=== PATIENT | male | born 1965 | race Caucasian/White ===

== ENCOUNTER 2016-06-29 12:20 | Observation (INO) | payer OTHER ==
[~2016-06-29] VITALS: Ht 182.9 cm; Wt 87.0 kg
[~2016-06-29 12:20] MED LIST: HYDR10TA16 PO; ZOCO40TA PO
[2016-06-29 12:23] VITALS: BP 139/96; PULSE 104; RESP 16; TEMP 98.7; O2SAT 97
--- NOTE | 2016-06-29 12:26 | PD ---
Physical Exam Time Seen by Provider: 12:24 Narrative 50 year old male presents to ED for evaluation of chest tightness on the left side radiating to his left shoulder and bicep. It has gone up to his neck. this has been going on for the last 3 days pretty steady. Associated with mild shortness of breath at times. No exacerbating or alleviating factors. He notices it mostly at rest. No recent illnesses, fevers, or chills. No medical history. No tobacco cigarettes or alcohol. Rates pain 5/10 at this time. Data Data Last Documented VS Vital Signs Date Time Temp Pulse Resp B/P Pulse Ox O2 Delivery O2 Flow Rate FiO2 06/29/16 12:23 98.7 104 16 139/96 97 Room Air Orders Electrocardiogram (06/29/16 12:26) Basic Metabolic Panel (Bmp) (06/29/16 12:26) Ckmb (Isoenzyme) Profile (06/29/16 12:26) Complete Blood Count With Diff (06/29/16 12:26) Magnesium (Mg) (06/29/16 12:26) Prothrombin Time / Inr (Pt) (06/29/16 12:26) Act Partial Throm Time (Ptt) (06/29/16 12:26) Troponin I (06/29/16 12:26) Lipase (06/29/16 12:26) Chest, Single Ap (06/29/16 12:26) CKMB (06/29/16 12:45) CKMB% (06/29/16 12:45) Admit Order (Ed Use Only) (06/29/16 14:53) Labs Laboratory Tests Test 06/29/16 12:45 White Blood Count 10.4 TH/MM3 Red Blood Count 5.15 MIL/MM3 Hemoglobin 15.7 GM/DL Hematocrit 46.5 % Mean Corpuscular Volume 90.2 FL Mean Corpuscular Hemoglobin 30.4 PG Mean Corpuscular Hemoglobin 33.7 % Concent Red Cell Distribution Width 13.5 % Platelet Count 288 TH/MM3 Mean Platelet Volume 9.1 FL Neutrophils (%) (Auto) 66.7 % Lymphocytes (%) (Auto) 22.4 % Monocytes (%) (Auto) 9.3 % Eosinophils (%) (Auto) 1.1 % Basophils (%) (Auto) 0.5 % Neutrophils # (Auto) 6.9 TH/MM3 Lymphocytes # (Auto) 2.3 TH/MM3 Monocytes # (Auto) 1.0 TH/MM3 Eosinophils # (Auto) 0.1 TH/MM3 Basophils # (Auto) 0.1 TH/MM3 CBC Comment DIFF FINAL Differential Comment Prothrombin Time 10.7 SEC Prothromb Time International 1.0 RATIO Ratio Activated Partial 27.8 SEC Thromboplast Time Sodium Level 140 MEQ/L Potassium Level 3.9 MEQ/L Chloride Level 105 MEQ/L Carbon Dioxide Level 27.2 MEQ/L Anion Gap 8 MEQ/L Blood Urea Nitrogen 9 MG/DL Creatinine 0.93 MG/DL Estimat Glomerular Filtration 86 ML/MIN Rate Random Glucose 134 MG/DL Calcium Level 9.0 MG/DL Magnesium Level 2.6 MG/DL Total Creatine Kinase 137 U/L Creatine Kinase MB 0.8 NG/ML Troponin I LESS THAN 0.02 NG/ML Lipase 157 U/L MDM Medical Record Reviewed: Yes Supervised Visit with JOSELIN: No Narrative Course PT appears without distress. Work up initiated in triage. Scripts No Active Prescriptions or Reported Meds Condition: Stable Quita Choi Jun 29, 2016 12:26
[2016-06-29 13:37] LABS: AUTOMATED NEUTROPHIL # 6.9 TH/MM3 (1.8-7.7); BASOPHIL # 0.1 TH/MM3 (0-0.2); BASOPHIL % 0.5 % (0.0-2.0); EOSINOPHIL # 0.1 TH/MM3 (0-0.4); EOSINOPHIL % 1.1 % (0.0-4.0); HEMATOCRIT 46.5 % (39.0-51.0); HEMO FLAGS DIFF FINAL; LYMPH % 22.4 % (9.0-44.0); LYMPHOCYTE # 2.3 TH/MM3 (1.0-4.8); MEAN CELL VOLUME 90.2 FL (80.0-100.0); MEAN CORPUSCULAR HEMOGLOBIN 30.4 PG (27.0-34.0); MEAN CORPUSCULAR HGB CONC 33.7 % (32.0-36.0); MONO % 9.3 % (0.0-8.0); NEUT % 66.7 % (16.0-70.0); PLATELET COUNT 288 TH/MM3 (150-450); RED BLOOD COUNT 5.15 MIL/MM3 (4.50-5.90); RED CELL DISTRIBUTION WIDTH 13.5 % (11.6-17.2); WHITE BLOOD COUNT 10.4 TH/MM3 (4.0-11.0)
--- NOTE | 2016-06-29 13:44 | RADRPT ---
EXAM DATE/TIME: 06/29/2016 12:50 [facility] COMPARISON: No previous studies available for comparison. INDICATIONS : Chest pain. MEDICAL HISTORY : None. SURGICAL HISTORY : None. ENCOUNTER: Initial ACUITY: 4 - 6 days PAIN SCORE: 4/10 LOCATION: Left chest FINDINGS: A single view of the chest demonstrates the lungs to be symmetrically aerated without evidence of mas s, infiltrate or effusion. The cardiomediastinal contours are unremarkable. Osseous structures are intact. CONCLUSION: No acute disease. Gianni Molina MD FACR on June 29, 2016 at 13:42 Board Certified Radiologist. This report was verified electronically.
[2016-06-29 13:46] LABS: APTT (PATIENT) 27.8 SEC (24.3-30.1); PROTHROMBIN TIME - PATIENT 10.7 SEC (9.8-11.6)
[2016-06-29 14:05] LABS: ANION GAP 8 MEQ/L (5-15); BICARBONATE 27.2 MEQ/L (21.0-32.0); BLOOD UREA NITROGEN 9 MG/DL (7-18); CHLORIDE 105 MEQ/L (98-107); GLOMERULAR FILTRATION RATE 86 ML/MIN (>89); MAGNESIUM 2.6 MG/DL (1.5-2.5); POTASSIUM 3.9 MEQ/L (3.5-5.1); SODIUM (NA) 140 MEQ/L (136-145)
[2016-06-29 14:08] LABS: CREATINE KINASE 137 U/L (39-308)
[2016-06-29 14:20] LABS: CKMB 0.8 NG/ML (0.5-3.6)
[2016-06-29 15:04] VITALS: BP 140/84; PULSE 91; RESP 16; O2SAT 97
--- NOTE | 2016-06-29 15:11 | PD ---
HPI Chief Complaint: Chest Pain Time Seen by Provider: 14:45 Travel History International Travel<30 days: No Contact w/Intl Traveler<30days: No History of Present Illness HPI 50 year-old male with history of GERD presents to the emergency room for evaluation of left-sided chest pain radiating to the left shoulder with occasional associated shortness of breath for the past 3 days. Pain feels like pressure. Patient thought it was just his typical indigestion but it has not been going away with Pepcid or omeprazole. Denies diaphoresis, nausea, and vomiting. States he went to his primary care physician is him straight to the emergency room to be evaluated by the pastry artist. States he ran 3 miles with his children since onset of pressure and had no symptoms at that time. Patient denies any cardiac or lung history. Denies any family cardiac history. Last stress test was greater than 10 years ago and normal. PFSH Past Medical History Medical History: Denies Significant Hx Arthritis: No Cardiovascular Problems: No Cerebrovascular Accident: No Gastrointestinal Disorders: No Genitourinary: No Headaches: No Musculoskeletal: No Neurologic: No Reproductive: No Respiratory: No Migraines: No Seizures: No Past Surgical History Abdominal Surgery: Yes Appendectomy: Yes Cardiac Surgery: No Ear Surgery: No Endocrine Surgery: No Eye Surgery: No Genitourinary Surgery: No Oral Surgery: Yes Thoracic Surgery: No Tonsillectomy: Yes Other Surgery: Yes Social History Alcohol Use: Yes (2 TIMES A WEEK) Tobacco Use: No Substance Use: No Allergies-Medications (Allergen,Severity, Reaction): Coded Allergies: Tetracycline (Verified Allergy, Intermediate, IV BLISTERED VEIN TRACK, ) Demerol (Verified Allergy, Mild, RESP- STOP BREATHING, 06/29/16) Penicillin (Verified Allergy, Mild, UNKNOWN, 06/29/16) Reported Meds & Prescriptions Reported Meds & Active Scripts Active No Active Prescriptions or Reported Medications Review of Systems Except as stated in HPI: all other systems reviewed are Neg Physical Exam Narrative GENERAL: Well-nourished, well-developed male in no acute distress. Afebrile. Ambulatory. SKIN: Warm and dry. HEAD: Normocephalic. EYES: No scleral icterus. No injection or drainage. NECK: Supple, trachea midline. No JVD or lymphadenopathy. CARDIOVASCULAR: Regular rate and rhythm without murmurs, gallops, or rubs. RESPIRATORY: Breath sounds equal bilaterally. No accessory muscle use. No crackles, rales, wheezes, or rhonchi. CHEST: Nontender throughout without deformity or crepitance. No retractions or use of accessory muscles. Data Data Last Documented VS Vital Signs Date Time Temp Pulse Resp B/P Pulse Ox O2 Delivery O2 Flow Rate FiO2 06/29/16 12:23 98.7 104 16 139/96 97 Room Air Orders Electrocardiogram (06/29/16 12:26) Basic Metabolic Panel (Bmp) (06/29/16 12:26) Ckmb (Isoenzyme) Profile (06/29/16 12:26) Complete Blood Count With Diff (06/29/16 12:26) Magnesium (Mg) (06/29/16 12:26) Prothrombin Time / Inr (Pt) (06/29/16 12:26) Act Partial Throm Time (Ptt) (06/29/16 12:26) Troponin I (06/29/16 12:26) Lipase (06/29/16 12:26) Chest, Single Ap (06/29/16 12:26) CKMB (06/29/16 12:45) CKMB% (06/29/16 12:45) Admit Order (Ed Use Only) (06/29/16 14:53) Labs Laboratory Tests Test 06/29/16 12:45 White Blood Count 10.4 TH/MM3 Red Blood Count 5.15 MIL/MM3 Hemoglobin 15.7 GM/DL Hematocrit 46.5 % Mean Corpuscular Volume 90.2 FL Mean Corpuscular Hemoglobin 30.4 PG Mean Corpuscular Hemoglobin 33.7 % Concent Red Cell Distribution Width 13.5 % Platelet Count 288 TH/MM3 Mean Platelet Volume 9.1 FL Neutrophils (%) (Auto) 66.7 % Lymphocytes (%) (Auto) 22.4 % Monocytes (%) (Auto) 9.3 % Eosinophils (%) (Auto) 1.1 % Basophils (%) (Auto) 0.5 % Neutrophils # (Auto) 6.9 TH/MM3 Lymphocytes # (Auto) 2.3 TH/MM3 Monocytes # (Auto) 1.0 TH/MM3 Eosinophils # (Auto) 0.1 TH/MM3 Basophils # (Auto) 0.1 TH/MM3 CBC Comment DIFF FINAL Differential Comment Prothrombin Time 10.7 SEC Prothromb Time International 1.0 RATIO Ratio Activated Partial 27.8 SEC Thromboplast Time Sodium Level 140 MEQ/L Potassium Level 3.9 MEQ/L Chloride Level 105 MEQ/L Carbon Dioxide Level 27.2 MEQ/L Anion Gap 8 MEQ/L Blood Urea Nitrogen 9 MG/DL Creatinine 0.93 MG/DL Estimat Glomerular Filtration 86 ML/MIN Rate Random Glucose 134 MG/DL Calcium Level 9.0 MG/DL Magnesium Level 2.6 MG/DL Total Creatine Kinase 137 U/L Creatine Kinase MB 0.8 NG/ML Troponin I LESS THAN 0.02 NG/ML Lipase 157 U/L [facility] Medical Decision Making Medical Screen Exam Complete: Yes Emergency Medical Condition: Yes Medical Record Reviewed: Yes Differential Diagnosis Chest pain versus pleuritis versus GERD Narrative Course 50-year-old male with history of GERD presents to the emergency room for evaluation of left-sided chest pain/pressure for the past 3 days; currently symptomatic. Pressure is constant and occasionally radiates into his left upper extremity and neck. There is occasional shortness of breath. Has not improved with indigestion medications. Patient denies nausea, vomiting, or diaphoresis. He went to his primary care physician who recommended he come to the emergency room to be evaluated in the chest pain center. Resting comfortably in bed. EKG shows sinus rhythm with a rate of 96; signed off by physician. Vital signs stable. CBC and BMP unremarkable. Troponin negative. Lipase within normal limits. Chest and abdomen are nontender to palpation. Lung sounds clear and equal bilaterally. Last stress test was greater than 10 years ago. Patient will be admitted to chest pain center for further evaluation. Diagnosis Primary Impression: Chest pain Qualified Code: R07.9 - Chest pain, unspecified type Admitting Information Admitting Physician Requests: Observation Scripts No Active Prescriptions or Reported Meds Condition: Stable Maribeth Serrano Jun 29, 2016 15:11
[2016-06-29] MEDS ORDERED: cloNIDine HCL 0.1 MG TAB PO PRN (16:30)
[2016-06-29] MEDS ORDERED: ONDANSETRON HCL 4 MG/2 ML VIAL IV PRN (16:30)
[2016-06-29] MEDS ORDERED: SODIUM CHLORIDE 0.9% FLUSH 5 ML FLUSH IVF PRN (16:30)
[2016-06-29] MEDS ORDERED: IBUPROFEN 600 MG TAB PO PRN (16:30)
[2016-06-29] MEDS ORDERED: ALPRAZolam 0.25 MG TAB PO PRN (16:30)
[2016-06-29] MEDS ORDERED: ACETAMINOPHEN 500 MG CPLT PO PRN (16:30)
[2016-06-29 17:44] LABS: CREATINE KINASE 125 U/L (39-308)
[2016-06-29 17:56] LABS: CKMB 1.2 NG/ML (0.5-3.6)
[2016-06-29 18:53] VITALS: BP 145/92
[2016-06-29 20:00] VITALS: PULSE 70
[2016-06-29 20:26] VITALS: BP 130/83; PULSE 75; RESP 18; TEMP 98; O2SAT 95
[2016-06-29 20:42] LABS: CREATINE KINASE 126 U/L (39-308)
[2016-06-29] MEDS ORDERED: SODIUM CHLORIDE 0.9% FLUSH 5 ML FLUSH IVF SCH (21:00)
[2016-06-30 01:22] VITALS: BP 128/78; PULSE 68; RESP 20; TEMP 98.7; O2SAT 97
[2016-06-30 03:02] VITALS: PULSE 58
[2016-06-30 05:27] VITALS: BP 128/75; PULSE 82; RESP 21; TEMP 98.9; O2SAT 96
[2016-06-30 08:00] VITALS: BP 143/82; PULSE 74; PULSE 85; RESP 16; TEMP 98.9; O2SAT 97
--- NOTE | 2016-06-30 08:33 | MH ---
cc: CARMEN MATAMOROS MD DATE OF ADMISSION: 06/29/2016 DATE OF : 1965 CHIEF COMPLAINT Chest pain. HISTORY OF PRESENT ILLNESS This is a 50-year-old male that presents to the ED via private vehicle at the request of his primary care physician to evaluate a chest discomfort. He states that for the last [id number] days he has had a constant left upper chest heaviness/pressure. It radiates up to the left side of his neck, to the left side of his chest and then back as well as going down to his left arm into the biceps region. He has really found nothing to worsen it. He states it actually does sometimes get a little better when he does activity. The worst though was a 5-6/10. It is currently about a 4-5/10. He rarely has been short of breath. Denies any nausea or diaphoresis. He thought it may have been related to heartburn. He took some Zantac and Prilosec and states it really has not helped. He has not tried antiinflammatories for this. He states he had a similar episode about 10-15 years ago and had a nuclear stress test and that was okay. He is not followed by a client technologies analyst at this time. His primary care physician is Dr. Quinn Rueda. Denies any recent illnesses. Denies fevers or chills. PAST MEDICAL HISTORY 1. GERD. 2. Hyperlipidemia however he stopped taking the Zocor two years ago. He states it was causing some leg discomforts. He has not discussed this with his primary care physician. Denies hypertension, diabetes and known CAD. FAMILY HISTORY Denies a family history of CAD. SOCIAL HISTORY The patient is a lifetime nonsmoker. Denies illicit drugs. He rarely has alcohol. He is . PAST SURGICAL HISTORY Noncontributory. ALLERGIES DEMEROL, PENICILLIN, TETRACYCLINE. MEDICATIONS The patient denies any medication for the most part. He has tried some Zantac and omeprazole the last few days without any relief of his symptoms. REVIEW OF SYSTEMS HEENT: Denies headache, earache, sore throat, difficulty swallowing. CARDIOVASCULAR: Describes the discomfort as mentioned above. Denies diaphoresis. Denies sensation of heart beating rapidly or irregularly. Denies syncope. RESPIRATORY: At times has some shortness of breath but states it has been very rare. Denies inspirational chest discomfort. Denies coughing, wheezing or hemoptysis. GASTROINTESTINAL: Denies nausea, vomiting, diarrhea, abdominal pain, or blood in the stool. MUSCULOSKELETAL: Describes the discomfort that radiates up into the left side of his neck and down his left arm and also into the left side of his lateral chest wall. Denies calf pain or swelling. NEUROLOGIC: Denies headache or dizziness. Denies numbness, tingling or weakness in extremities. ENDOCRINE: Denies polyuria or polydipsia. HEMATOLOGIC: Denies easy bruising. SKIN: Denies rash or itching. PHYSICAL EXAMINATION VITAL SIGNS: Vital signs in the emergency department initially included a blood pressure of 139/96, heart was 104, respiration was 16, pulse oximetry 97% on room air and he was afebrile. Most recent vital signs include a blood pressure of 140/84, heart rate is 91, respiration is 16, pulse oximetry 97% on room air. GENERAL: The patient seen in the examination room in no apparent distress. He is pleasant. He speaks in clear and complete sentences. His is also at the bedside. HEENT: Head is atraumatic and normocephalic. NECK: The neck is supple without lymphadenopathy and trachea is midline. No JVD or carotid bruits. CARDIOVASCULAR: Regular rate and rhythm without murmur, gallop or rub. RESPIRATORY: Lungs are clear to auscultation bilaterally. No wheezing, rales or rhonchi. There is no reproducible chest wall discomfort. No use of accessory muscles. GASTROINTESTINAL: Abdomen is nontender, nondistended. Bowel sounds are normal. No guarding or rebound. No obvious pulsatile mass or bruit. No CVA tenderness. Strong femoral pulses bilaterally. MUSCULOSKELETAL: The patient is moving upper and lower extremities freely. No joint tenderness or edema. No calf tenderness or edema, no Cory's sign. Strong pulses in upper and lower extremities. NEUROLOGIC: The patient is alert and oriented. Cranial nerves II through XII are grossly intact. No focal deficit and speech is clear. SKIN: No rash and turgor is normal. LABORATORY DATA CBC is unremarkable. Coagulation studies are unremarkable. Basic metabolic panel has a glucose mildly elevated at 134, GFR is decreased a little at 86, otherwise unremarkable BMP. Magnesium level is mildly elevated at 2.6. First set of cardiac enzymes normal. Lipase normal at 157. IMAGING Single view chest x-ray read by radiologist as no acute disease. EKGs: Initial EKG is sinus rhythm without significant ST-segment depression or elevation. ASSESSMENT AND PLAN 1. Chest pain: His discomfort is very atypical. He has been seen by Dr. Matamoros of Cardiology in the Chest Pain Center. He will spend the evening in the Chest Pain Center. If he does rule out, he will then proceed with a Dylan protocol ETT, and if that were to be unremarkable he will be discharged home with instructions to followup with his local physician. 2. Hyperlipidemia. The patient will need to discuss this with his primary care physician. Repeat his lipid panel and find a medication or that does not give him adverse effects. Th patient is stable at this time. He is agreeable to this plan. DICTATED BY: Oniel Merchant PA-C Rajiv Blackwell/ANGELINA /4:27 PM /8:33 AM
[2016-06-30] MEDS ORDERED: ASPIRIN 325 MG TAB PO SCH (09:00)
--- NOTE | 2016-06-30 10:55 | HHI.DCPOC ---
Discharge Care Plan Diagnosis: (1) Musculoskeletal chest pain Goals to Promote Your Health * To prevent worsening of your condition and complications * To maintain your health at the optimal level Directions to Meet Your Goals Take your medications as prescribed Follow your dietary instruction Follow activity as directed Keep your appointments as scheduled Take your immunizations and boosters as scheduled If your symptoms worsen call your PCP, if no PCP go to Urgent Care Center or Emergency Room Smoking is Dangerous to Your Health. Avoid second hand smoke Call the 24-hour hour crisis hotline for domestic abuse at Maryam Patten Jun 30, 2016 10:55
--- NOTE | 2016-07-01 16:03 | TR ---
Date Performed: 06/30/2016 Time Performed: 10:02:48 DOCTOR: Tania Tao DRUG LIST: CLINICAL HISTORY: CHEST PAIN REASON FOR TEST: REASON FOR ENDING: OBSERVATION: CONCLUSION: Dylan protocol completed. Stopped sec to exceeding target heart rate and leg fatigue . Maximum HJ=277 Target HR Achieved=93.0% Maximum BJ=730/78 Total Exercise Time=6:05. No st t seg tanesha nges to sugg ischemia, upsloping segments. No reprod chest discomfort. Normal bp response. Recovery q uick and unremarkable. COMMENTS:
--- NOTE | 2016-07-01 16:05 | EKG ---
Date Performed: 06/29/2016 Time Performed: 16:45:43 PTAGE: 50 years EKG: Sinus rhythm NORMAL ECG Since PREVIOUS TRACING , no significant change noted PREVIOUS TRACIN06/29/2016 12.49 DOCTOR: Tania Tao Interpretating Date/Time 07/01/2016 16:04:29
--- NOTE | 2016-07-01 16:05 | EKG ---
Date Performed: 06/29/2016 Time Performed: 19:46:05 PTAGE: 50 years EKG: Sinus rhythm WITH SINUS ARRHYTHMIA NORMAL ECG Since PREVIOUS TRACING , no significant change noted PREVIOUS TRACIN06/29/2016 16.45 DOCTOR: Tania Tao Interpretating Date/Time 07/01/2016 16:04:08
--- NOTE | 2016-07-01 16:06 | EKG ---
Date Performed: 06/29/2016 Time Performed: 12:49:15 PTAGE: 50 years EKG: Sinus rhythm NORMAL ECG Since PREVIOUS TRACING , no significant change noted PREVIOUS TRACIN11/04/2010 13.30 DOCTOR: Tania Tao Interpretating Date/Time 07/01/2016 16:06:07
== END 2016-06-30 12:43 | disposition home or self-care (01) ==
LOC: NEPC 12:20 → NEDA 14:56 → NEPGCP 19:09
PROVIDERS: ADMIT Internal Medicine Cardiovascular Disease; ATTEND Internal Medicine Cardiovascular Disease
DX: R07.89 Other chest pain (principal); R06.02 Shortness of breath; K21.9 Gastro-esophageal reflux disease without esophagitis; E78.5 Hyperlipidemia, unspecified
CPT/HCPCS: 71010; 80048; 82550; 82552; 83690; 83735; 84484; 85025; 85610; 85730; 93005; 93017; 99285; G0378